=== PATIENT | male | born 1960 | race Caucasian/White ===

== ENCOUNTER → 2018-06-10 | Outpatient (CLI) | payer OTHER ==
[2015-04-12 11:13] VITALS: BP 124/72
[~2018-06-10] MED LIST: ASPI-482 PO; IBUP-1060 PO; OMEG-113 PO; TEST200V3 IM; TRAM50TA PO
--- NOTE | 2018-06-10 13:19 | KCIC ---
MR of the left ankle Indication: Posttraumatic osteoarthritis of the left ankle. Tendon repair 2004 after injury. Infection at the lateral ankle. Comparison: None are available Technique: Standard multiplanar sequences are obtained. FINDINGS: Artifact: No significant image degradation. Lateral: Peroneal tendons: Tendinosis, particularly of the peroneus longus tendon. Mild fluid. Lateral collateral ligaments: * Anterior talofibular ligament: Poorly seen * Calcaneofibular ligament: Poorly seen * Posterior talofibular ligament: Thick/scarred Tibiofibular syndesmosis: Thickening and scarring of the anterior inferior tibiofibular ligament. Medial: Posterior tibial tendon: Mild tendinosis, mild fluid. Flexor digitorum longus and hallucis tendons: Mild fluid, particularly at the intersection at the hindfoot Medial ligaments: Poorly defined Anterior: Anterior tibial tendon: Intact Extensor hallucis longus tendon: Intact Extensor digitorum longus tendon: Intact Posterior: Achilles tendon: Small enthesophytes at the insertion, intact. Plantar aponeurosis: Intact, subjacent enthesophyte. Subtalar joints: Patent Tarsal sinus: Intact Talar Dome: Subchondral irregularity but no evidence of unstable osteochondral lesion. Bones: No evidence of an acute fracture. No aggressive bone destruction. No definite evidence of acute osteomyelitis, although could be difficult to exclude at the tibiotalar joint due to the degenerative changes. Fluid: Small tibiotalar and subtalar joint effusions. Joints: Severe degenerative changes at the tibiotalar joint with subchondral bone flattening and irregularity. Subchondral edema and cysts. There are also degenerative changes, elsewhere about the region although less advanced. Intraosseous cysts at the tarsometatarsal joints are likely degenerative. Poorly seen however. Soft tissues: Generalized soft tissue edema. Impression: 1. Diffuse soft tissue edema or cellulitis. No evidence of a drainable abscess. 2. Severe tibiotalar joint osteoarthritis. 3. Poorly defined medial and lateral ligaments, likely due to tearing 4. Small effusions of uncertain sterility. 5. No definite acute osteomyelitis, although could be difficult to confidently exclude at the tibiotalar joint due to the background degenerative changes. Electronically signed by: Brando Vigil MD (06/10/2018 1:15 PM) [facility]-KCIC2
== END | disposition home or self-care (01) ==
LOC: KCIC MRI 09:00
PROVIDERS: ATTEND Physician Assistant Medical
DX: M19.172 Post-traumatic osteoarthritis, left ankle and foot (principal); M25.472 Effusion, left ankle
CPT/HCPCS: 73721

== ENCOUNTER → 2018-07-18 | Outpatient (CLI) | payer OTHER ==
[2015-04-12 11:13] VITALS: BP 124/72
== END | disposition home or self-care (01) ==
LOC: PMGWOUND 08:46
PROVIDERS: ATTEND Nurse Practitioner Family
DX: L02.416 Cutaneous abscess of left lower limb (principal); M19.172 Post-traumatic osteoarthritis, left ankle and foot; F17.200 Nicotine dependence, unspecified, uncomplicated
CPT/HCPCS: 87071; 87075; 99214; G0463

== ENCOUNTER → 2018-07-25 | Outpatient (CLI) | payer OTHER ==
[2015-04-12 11:13] VITALS: BP 124/72
== END | disposition home or self-care (01) ==
LOC: PMGWOUND 09:28
PROVIDERS: ATTEND Emergency Medicine Undersea and Hyperbaric Medicine
DX: M19.072 Primary osteoarthritis, left ankle and foot (principal); F17.200 Nicotine dependence, unspecified, uncomplicated
CPT/HCPCS: 99213

== ENCOUNTER → 2018-08-24 | Outpatient (CLI) | payer OTHER ==
[2015-04-12 11:13] VITALS: BP 124/72
== END | disposition home or self-care (01) ==
LOC: PMGWOUND 08:54
PROVIDERS: ATTEND Preventive Medicine Undersea and Hyperbaric Medicine
DX: L89.521 Pressure ulcer of left ankle, stage 1 (principal); M19.072 Primary osteoarthritis, left ankle and foot; L97.321 Non-pressure chronic ulcer of left ankle limited to breakdown of skin; F17.200 Nicotine dependence, unspecified, uncomplicated; E66.9 Obesity, unspecified; Z68.34 Body mass index [BMI] 34.0-34.9, adult
CPT/HCPCS: 99213; G0463

== ENCOUNTER → 2019-12-11 | Outpatient (CLI) | payer OTHER ==
[2015-04-12 11:13] VITALS: BP 124/72
[~2019-12-11] MED LIST changes: +BUPR300T3 PO; +PHEN37.599 PO; +SERT50TA PO
[2019-12-11 09:24] LABS: BASO % 1 % (0-3); EOS # 0.2 x10^3/uL (0.0-0.7); EOS % 3 % (0-3); HEMOGLOBIN 14.7 g/dL (13.0-17.5); LYMPH # 2.5 x10^3/uL (1.0-4.8); LYMPH % 39 % (24-48); MEAN CORPUSCULAR HEMOGLOBIN 33 pg (25-35); MEAN CORPUSCULAR HGB CONC 34 g/dL (31-37); MEAN CORPUSCULAR VOLUME 98 fL (79-100); MONO # 0.6 x10^3/uL (0.0-1.1); MONO % 10 % (0-9); NEUT % 47 % (31-73); PLATELET COUNT 220 x10^3/uL (140-400); RED BLOOD COUNT 4.41 x10^6/uL (4.30-5.70); RED CELL DISTRIBUTION WIDTH 13.7 % (11.5-14.5); WHITE BLOOD COUNT 6.3 x10^3/uL (4.0-11.0)
[2019-12-11 09:33] LABS: ALBUMIN 3.6 g/dL (3.4-5.0); C-REACTIVE PROTEIN 7.8 mg/L (0-3.3); CALCIUM 9.1 mg/dL (8.5-10.1); POTASSIUM 4.2 mmol/L (3.5-5.1)
--- NOTE | 2019-12-11 12:04 | RAD ---
EXAM: CHEST PA LATERAL INDICATION: Reason: joint prehab class, hx hypertension-preop eval / Spl. Instructions: / History: . TECHNIQUE: PA and lateral views COMPARISON: None FINDINGS: The heart size is normal. The great vessels appear unremarkable. There is no hilar or mediastinal mass. The lungs are clear. There is no pleural effusion or pneumothorax. There are no significant osseous abnormalities. IMPRESSION: No active cardiopulmonary disease. Electronically signed by: Melchor Kiser MD (12/11/2019 12:02 PM) [id number]
--- NOTE | 2019-12-11 13:03 | EKG ---
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
[2019-12-12 01:08] LABS: HEMOGLOBIN A1C 5.6 % (4.8-5.6)
== END | disposition home or self-care (01) ==
LOC: SURGPAT 11:19
PROVIDERS: ATTEND Orthopaedic Surgery
DX: Z01.818 Encounter for other preprocedural examination (principal); M17.11 Unilateral primary osteoarthritis, right knee; I10 Essential (primary) hypertension
CPT/HCPCS: 36415; 71046; 80048; 82040; 82306; 83036; 85025; 85610; 85730; 86140; 87641; 93005

== ENCOUNTER → 2019-12-20 | Outpatient (CLI) | payer OTHER ==
[2015-04-12 11:13] VITALS: BP 124/72
== END | disposition home or self-care (01) ==
LOC: LAB 13:02
PROVIDERS: ATTEND Orthopaedic Surgery
DX: Z01.818 Encounter for other preprocedural examination (principal); Z11.59 Encounter for screening for other viral diseases
CPT/HCPCS: U0003-CS

== ENCOUNTER 2019-12-26 06:06 | Observation (INO) | payer OTHER ==
[2019-12-26] VITALS (7 sets, daily range): BP systolic 112–150; BP diastolic 74–97
[~2019-12-26] VITALS: Ht 182.9 cm; Wt 123.1 kg
[~2019-12-26 06:06] MED LIST changes: +GABAPENTIN 300 MG CAPSULE. PO PRN; +MELOXICAM 7.5 MG TABLET PO PRN; +MORPHINE SULFATE 5 MG, KETOROLAC 30MG VIAL 30 MG, ROPIVacaine 0.5% PF 60 ML, EPINEPHrin... INT ART ONE; +TRANEXAMIC ACID 1,000 MG in IV NORMAL SALINE 50ML 50 ML INJ ONE
[2019-12-26] MEDS ORDERED: PROPOFOL 10 MG/ML (20ML) VIAL. IV ONE ×2 (06:24→07:47)
[2019-12-26] MEDS ORDERED: ONDANSETRON PF 4 MG/2 ML VIAL. ONE (06:25)
[2019-12-26] MEDS ORDERED: DEXAMETHASONE SOD PHOS 4 MG/ML VIAL ONE (06:25)
[2019-12-26] MEDS ORDERED: LIDOCAINE 2% PF 5 ML VIAL. ONE (06:25)
[2019-12-26] MEDS ORDERED: fentaNYL PF VIAL 100 MCG/2 ML VIAL ONE ×2 (06:25→08:29)
[2019-12-26] MEDS ORDERED: MIDAZOLAM HCL/PF 2 MG/2 ML VIAL. ONE (06:56)
[2019-12-26] MEDS ORDERED: IV RINGERS,LACTATED 1000ML 1,000 ML IV SCH (07:00)
[2019-12-26] MEDS ORDERED: ceFAZolin SODIUM 3 GM in IV DEXTROSE 5% 100ML 100 ML IV PRN (07:00)
[2019-12-26] MEDS ORDERED: ONDANSETRON PF 4 MG/2 ML VIAL. IV PRN (07:00)
[2019-12-26] MEDS ORDERED: PROCHLORPERAZINE 10 MG/2 ML VIAL. IV PRN ×2 (07:00→10:45)
[2019-12-26] MEDS: IV NORMAL SALINE 1000ML BAG 1,000 ML IV SCH (07:04)
[2019-12-26] MEDS ORDERED: 0.9 % SODIUM CHLORIDE 10 ML DISP.SYRIN. IV PRN (07:15)
[2019-12-26] MEDS ORDERED: PROCHLORPERAZINE 5 MG TABLET. PO PRN (07:15)
[2019-12-26] MEDS ORDERED: CALCIUM CARBONATE 500 MG TAB.CHEW PO PRN (07:15)
[2019-12-26] MEDS ORDERED: diphenhydrAMINE 50 MG/ML VIAL IVP PRN (07:15)
[2019-12-26] MEDS ORDERED: DEXTROSE 50% 25 GM / 50ML DISP.SYRIN. IV PRN (07:15)
[2019-12-26] MEDS ORDERED: ACETAMINOPHEN 500 MG TABLET PO ONE ×2 (07:16→07:45)
[2019-12-26] MEDS: GABAPENTIN 100 MG CAPSULE. PO SCH (07:20)
[2019-12-26 07:24] LABS: PROTHROMBIN TIME PATIENT 12.4 SEC (11.7-14.0)
[2019-12-26] MEDS ORDERED: WARF5TAB2 PO (07:43)
[2019-12-26] MEDS ORDERED: MELO15TA6 PO (07:44)
[2019-12-26] MEDS ORDERED: TRANEXAMIC ACID 1,000 MG in IV NORMAL SALINE 50ML 50 ML INJ ONE (08:00)
[2019-12-26] MEDS: FERROUS SULFATE 325 MG TABLET. PO SCH ×2 (08:00→17:13)
[2019-12-26] MEDS ORDERED: PHENYLEPHRINE in 0.9% NACL PF 1 MG/10 ML SYRINGE. IV ONE (08:04)
[2019-12-26] MEDS ORDERED: GLYCOPYRROLATE 1 MG/5 ML VIAL. ONE (08:04)
[2019-12-26] MEDS: SENNOSIDES/DOCUSATE 8.6/50MG TABLET. PO SCH (09:00)
[2019-12-26] MEDS: MULTIVITAMIN with MINERAL TABLET. PO SCH (09:00)
--- NOTE | 2019-12-26 09:15 | PREOP HP ---
DATE OF SERVICE: 12/26/2019 PREOPERATIVE HISTORY AND PHYSICAL CHIEF COMPLAINT: Degenerative joint disease and pain, right knee. HISTORY OF PRESENT ILLNESS: The patient has undergone long-term nonoperative management of right knee DJD and notes that after his last Monovisc injection in the right knee, he only got about 2-3 weeks relief, but continues to be very limited in his activities of daily living, painful particularly on startup and with increased activities and has really failed other nonoperative management and wished to proceed with definitive surgical treatment. PAST MEDICAL HISTORY: Significant for chronic fatigue syndrome, back pain, degenerative joint disease, vitamin D deficiency, hypogonadism, fatigue, spinal stenosis, and sciatica. PAST SURGICAL HISTORY: Carpal tunnel release, shoulder surgery, ankle fusion, and colonoscopy. FAMILY HISTORY: Father was due to lung cancer and mother is alive and relatively healthy. SOCIAL HISTORY: Smokes about a half pack per day for the past 20 years. Occasional alcohol consumption, moderately 2-3 times a week. Denies drug use. , with children and works at the [employer]. MEDICATIONS: List is reviewed and ibuprofen was held. ALLERGIES: He has no known drug allergies, although HE LISTS AN INTOLERANCE TO PERCOCET, which keeps him awake and he says it does not work very well. REVIEW OF SYSTEMS: He denies any recent febrile illness. No chest pain, shortness of breath, other joint pain, radiating pain, focal weakness, numbness, tingling or other constitutional symptoms. PHYSICAL EXAMINATION: VITAL SIGNS: Per his admission sheet. Temp is afebrile. HEENT: Atraumatic, normocephalic. HEART: Regular rate and rhythm. LUNGS: Clear to auscultation bilaterally. ABDOMEN: Benign. EXTREMITIES: Examination of the knees reveal very slight flexion contracture and limitation of his terminal flexion of the right knee and slight varus on the right knee compared to the left medial more so than lateral joint line tenderness. Moderate patellofemoral crepitus without instability. Well-healed incision from a previous total knee arthroplasty on the left knee. Normal examination of bilateral hips and ankles. IMPRESSION: Primary osteoarthritis of the right knee and history of total left knee replacement. TREATMENT PLAN: We had previously gone over risks, benefits, and postoperative course of the total knee arthroplasty including the possibility of continued pain with the possibility of infection, premature loosening, instability, medical or other anesthetic complications among others. He wishes to proceed with surgical evaluation and treatment, which will occur today as he is given informed consent. CARMEN TYLER MD DR: TERRY/wendy JOB#: [id number] / [id number]
[2019-12-26] MEDS ORDERED: VANCOMYCIN 1 GM VIAL. ONE (09:21)
[2019-12-26] MEDS ORDERED: SEVOFLURANE > 120 MINUTES. IH ONE (09:38)
[2019-12-26] MEDS: MORPHINE SULFATE 2 MG/ML VIAL. IVP PRN ×3 (10:31→22:52)
[2019-12-26] MEDS: HYDROmorphone 2 MG/ML VIAL IV PRN ×4 (10:43→10:53)
[2019-12-26] MEDS ORDERED: fentaNYL PF VIAL 100 MCG/2 ML VIAL IV PRN (10:45)
[2019-12-26] MEDS ORDERED: MORPHINE SULFATE 2 MG/ML VIAL. IV PRN (10:45)
[2019-12-26] MEDS: fentaNYL PF VIAL 100 MCG/2 ML VIAL IV PRN ×2 (10:58→11:10)
--- NOTE | 2019-12-26 11:20 | NUR ---
Arrived to unit by bed from PACU. Drowsy but awakens easily. Right leg elevated on pillow and ice pack. Right knee dressing is d/i with BRET, IAC and Hemovac drain intact. Pt able to wiggle toes easily, warm touch and pedal pulses + bilaterally. RHETT and SCD on left leg and CLARISSA on right foot. IVF's intact and infusing. Oriented to room and controls. Side rails up x's 2 with call light in reach. Family at bedside. Cont. monitor.
--- NOTE | 2019-12-26 11:28 | RAD ---
PROCEDURE: KNEE RIGHT 2V STUDY DATE: 12/26/2019 CLINICAL INDICATION / HISTORY: Reason: POST OP / Spl. Instructions: / History: . TECHNIQUE: AP and crosstable lateral views of the right knee were obtained COMPARISON: 07/26/2019 right knee x-rays FINDINGS: Interval right total knee arthroplasty in anatomic alignment. Fluid and gas in the joint space is present along with a surgical drain. No fracture or aggressive osseous lesions seen. IMPRESSION: Expected postoperative changes following right total knee arthroplasty. Electronically signed by: Melchor Kiser MD (12/26/2019 11:25 AM) [id number]
--- NOTE | 2019-12-26 11:50 | PDOC4 ---
Operative Note Operative Note Date of surgery: 12/26/2019 Preoperative diagnosis: Degenerative joint disease right knee Postoperative diagnosis: Same Operative procedure: Right total knee arthroplasty Surgeon: [employer] Internship: Missy howe Anesthesia: General Estimated blood loss: 50 cc Complications: None Operative indications: Please see my previous clinic note and dictated history and physical of today for detailed operative indications Operative text: Patient was identified procedure verified patient placed in the supine position on the operating table. After adequate amounts of general anesthesia were administered the right lower extremity was prepped and draped in the standard sterile fashion with a thigh tourniquet. After timeout was performed patient procedure identified and verified the right lower extremity was exsanguinated by elevation and tourniquet inflated to 350 mils of mercury and a midline incision was made with a medial parapatellar approach patella was everted fat pad was excised he was noted to have severe wear in the medial compartment with varus deformity and particularly posterior tibial wear severe in nature. He also had severe synovitis and a synovectomy was performed with electrocautery. The intramedullary femoral guide was drilled and placed for a standard distal femur cut as he had only a minimal flexion contracture. Distal femur was sized at a size 8 and translated 2 mm superiorly to avoid any notching AP chamfer cuts were made cruciate ligaments were excised as they were compromised by the synovitis and tibial alignment guide was aligned to the se cond toe with care particularly as he had a previous ankle fusion. With retractors protecting the collateral ligaments and posterior structures tibial cut was made just at the level of the severe posterior medial wear on the tibia and tibia sized at a size 8. Flexion extension gaps were assessed and were excellent medial lateral stability balance by a slight medial release and re moval of some osteophytes. Tibia was drilled and broached with a size 8 component a size 8 posterior stabilized femoral trial was placed after excising the bone and the box area. A 26 mm by concave patella was reamed and noted excellent tracking. With trial components were removed thorough irrigation carried out with normal saline solution and bleeding points were controlled by electrocautery. The following [employer] Nephew components were cemented in place using polymethyl methacrylate cement: A size 8 journey 2 tibial component nonporous. A size 8 Oxinium posterior stabilized femoral component. A 26 mm bi concave patella component, and a 11 mm articular insert provided excellent balance with full range of motion. After cement was dry and excess cement removed a size 11 mm journey to articular insert was locked into place, Hemovac drain and articular pain catheter were placed pain catheter mixture was injected throughout the joint capsule, 1 g vancomycin was sprinkled throughout the joint capsule and closure accomplished with #2 Ethibond suture in an interrupted fashion reinforced with #1 PDS strata fix suture. Subcutaneous closure with buried Vicryl suture subcuticular 3-0 strata fix Monocryl followed by a dede dressing with Acticoat. Toes were noted to be warm pink following deflation of the tourniquet and patient was returned to recovery room in stable condition having tolerated procedure well. Missy Rust was present for the procedure and assisted in the positioning prepping draping retraction closure and dressings CARMEN TYLER MD Dec 26, 2019 11:50
[2019-12-26] MEDS: ONDANSETRON PF 4 MG/2 ML VIAL. IVP SCH ×2 (12:00→18:00)
[2019-12-26] MEDS: ONDANSETRON ODT 4 MG TAB.RAPDIS. PO SCH ×2 (12:00→18:00)
[2019-12-26] MEDS: fentaNYL PF VIAL 100 MCG/2 ML VIAL IVP PRN (12:01)
[2019-12-26] MEDS: SERTRALINE 50 MG TABLET. PO SCH (13:28)
[2019-12-26] MEDS: buPROPion XL 150 MG TAB.ER.24H. PO SCH (13:28)
[2019-12-26] MEDS ORDERED: WARFARIN 7.5 MG TABLET. PO ONE (16:00)
[2019-12-26] MEDS: KETOROLAC 30MG VIAL 30 MG, BUPIVACAINE MPF 0.25% 20 ML, EPINEPHrine 0.5 MG in TOTAL VOL... INT ART SCH (17:39)
--- NOTE | 2019-12-26 18:42 | NUR ---
Unable to infuse IAC med.
--- NOTE | 2019-12-26 19:35 | NUR ---
States he has chronic numbness in his feet, history of fused ankles bilaterally. IV site change due to kink in catheter. 20g placed left hand. Morphine given IVP. Ice pack placed. Rating pain 5/10.
[2019-12-26] MEDS: ZOLPIDEM 5 MG TABLET. PO PRN (22:57)
[2019-12-27] MEDS: fentaNYL PF VIAL 100 MCG/2 ML VIAL IVP PRN ×4 (00:23→13:13)
[2019-12-27] MEDS: ZOLPIDEM 5 MG TABLET. PO PRN (00:34)
--- NOTE | 2019-12-27 01:05 | NUR ---
Patient crying, c/o pain behind knee but now "it's in my thigh and knee." Has rec'd Morphine, Fentanyl and Ambien. Still rating 10/10. Patient states he takes Ultram po at HS and that works fine. Attempts at diversion have been unsuccessful.
[2019-12-27] MEDS ORDERED: traMADol 50 MG TABLET PO ONE (01:30)
[2019-12-27 03:21] VITALS: BP 122/78
--- NOTE | 2019-12-27 03:23 | NUR ---
"I slept for about 45 minutes." C/o thigh pain now. Rubbing quads w/ empty water pitcher. Morphine given IVP, new IV site leaking.
[2019-12-27 05:07] LABS: HEMATOCRIT 37.2 % (39.0-53.0); HEMOGLOBIN 12.8 g/dL (13.0-17.5)
[2019-12-27 05:17] LABS: PROTHROMBIN TIME PATIENT 13.9 SEC (11.7-14.0)
[2019-12-27] MEDS: GABAPENTIN 100 MG CAPSULE. PO SCH ×2 (05:41→14:29)
[2019-12-27] MEDS: traMADol 50 MG TABLET PO SCH ×3 (05:42→17:29)
[2019-12-27] MEDS: ONDANSETRON ODT 4 MG TAB.RAPDIS. PO SCH ×2 (05:52)
[2019-12-27] MEDS: KETOROLAC 30MG VIAL 30 MG, BUPIVACAINE MPF 0.25% 20 ML, EPINEPHrine 0.5 MG in TOTAL VOL... INT ART SCH (05:52)
[2019-12-27] MEDS: ONDANSETRON PF 4 MG/2 ML VIAL. IVP SCH ×2 (05:52)
[2019-12-27] MEDS ORDERED: MAGNESIUM HYDROXIDE 2,400 MG/30 ML ORAL.SUSP. PO PRN (06:00)
--- NOTE | 2019-12-27 06:10 | NUR ---
New order for Flexeril TID rec'd from Dr. Abreu. Juliano wrap partially unwrapped at patient request. Small amount bloody drainage to posterior soft roll. Thigh is not swollen, pedal pulse 2+, able to wiggle toes. Fresh ice applied.
[2019-12-27] MEDS: CYCLOBENZAPRINE 10 MG TABLET. PO PRN ×2 (06:19→14:29)
[2019-12-27 07:00] VITALS: BP 130/81
--- NOTE | 2019-12-27 07:02 | NUR ---
Hemovac has 2 green barron size blood clots present. "Those IV pain meds don't do anything for me." Believes the Flexeril "may be helping."
[2019-12-27] MEDS: IV NORMAL SALINE 1000ML BAG 1,000 ML IV SCH (07:04)
[2019-12-27] MEDS: MELOXICAM 7.5 MG TABLET PO SCH (07:43)
[2019-12-27] MEDS: FERROUS SULFATE 325 MG TABLET. PO SCH ×2 (07:43→17:28)
[2019-12-27] MEDS: SENNOSIDES/DOCUSATE 8.6/50MG TABLET. PO SCH (07:43)
[2019-12-27] MEDS: MORPHINE SULFATE 2 MG/ML VIAL. IVP PRN ×2 (07:43→11:14)
[2019-12-27] MEDS: ACETAMINOPHEN 500 MG TABLET PO SCH ×3 (07:43→20:51)
[2019-12-27] MEDS: MULTIVITAMIN with MINERAL TABLET. PO SCH (07:44)
[2019-12-27] MEDS: buPROPion XL 150 MG TAB.ER.24H. PO SCH (07:44)
[2019-12-27] MEDS: SERTRALINE 50 MG TABLET. PO SCH (07:44)
[2019-12-27] MEDS: ASPIRIN ENTERIC COATED 81 MG TABLET.DR. PO SCH (07:44)
--- NOTE | 2019-12-27 08:48 | NUR ---
Umesh has been awake all night. He is painful and rating his pain a "9". Medicated with morphine. am care completed. He has good sensation,pulses and motion in lower extremities. states pain is still a "9" after morphine
--- NOTE | 2019-12-27 10:55 | NUR ---
pain was down to 7 prior to therapy. unable to tolerate therapy. restless and unable to sit for long periods of time. returned to room within 30 min
[2019-12-27 11:14] VITALS: BP 123/86
[2019-12-27] MEDS ORDERED: ONDANSETRON ODT 4 MG TAB.RAPDIS. PO PRN (12:00)
[2019-12-27] MEDS ORDERED: ONDANSETRON PF 4 MG/2 ML VIAL. IVP PRN (12:00)
[2019-12-27] MEDS: HYDROcodone/APAP 10/325 1 TAB TABLET PO PRN (14:29)
--- NOTE | 2019-12-27 14:38 | NUR ---
gave fentanyl prior to going to therapy. was able to tolerate therapy for the whole session this time. Hemovac and iac removed (blue tip ) intact. Addendum: 12/27/19 at 1449 by MAYKEL RESENDIZ RN BRET dressing has a small/moderate amount drainage on the knee cap area.
--- NOTE | 2019-12-27 15:05 | NUR ---
Pharmacy Warfarin Dosing Note S:Pharmacy consulted to assist with anticoagulation therapy started 12/26/19 with target INR: O:RUDOLPH CLINE is a 59 year old M with TKA LABS: Last INR: 1.1 Last HGB: 12.8 Last HCT: 37.2 Last PLT: Last dose of 7.5 mg given on 12/26/19 at 1700 Previous Regimen: Vitamin K given: N Drug Interaction Changes: Ongoing Drug Interactions: ASA/MELOXICAM A:INR of 1.1 is below desired range. Target range for this patient is: P: Warfarin dose: 6 mg Today at 1600 Bridge Therapy: None Next INR due IN AM Pharmacy anticoagulation service will continue to follow. SANGITA CAMPOS [facility], 12/27/19 1450
[2019-12-27] MEDS ORDERED: BISACODYL 10 MG SUPP.RECT. PR PRN (16:00)
[2019-12-27] MEDS ORDERED: WARFARIN 3 MG TABLET. PO ONE (16:00)
[2019-12-27 18:14] VITALS: BP 131/51
--- NOTE | 2019-12-27 20:42 | PDOC ---
PROGRESS NOTES Subjective Subjective Problems overnight: Hans indicates significant difficulty sleeping last night, he does not tolerate oxycodone so was given morphine and fentanyl alternating and nurse reported that the intra-articular catheter was not infusing well Objective Vital Signs Vital Signs Date Time Temp Pulse Resp B/P (MAP) Pulse Ox O2 Delivery O2 Flow Rate FiO2 12/27/19 18:14 100.3 101 16 131/51 (77) 95 Room Air 100.3 12/26/19 10:58 10.0 Physical Exam Noé dressing intact Hemovac functional intra-articular catheter without obvious drainage but difficulty infusing, some blood clots in Hemovac Otherwise good early range of motion distal neurovascular status intact Labs Laboratory Tests Test 12/26/19 06:55 12/27/19 04:43 Prothrombin Time 12.4 SEC (11.7-14.0) 13.9 SEC (11.7-14.0) Prothromb Time International Ratio 1.0 (0.8-1.1) 1.1 (0.8-1.1) Activated Partial Thromboplast Time 29 SEC (24-38) Hemoglobin 12.8 g/dL (13.0-17.5) Hematocrit 37.2 % (39.0-53.0) Mean Corpuscular Hemoglobin Concent 35 g/dL (31-37) Laboratory Tests Test 12/27/19 04:43 Hemoglobin 12.8 g/dL (13.0-17.5) Hematocrit 37.2 % (39.0-53.0) Mean Corpuscular Hemoglobin Concent 35 g/dL (31-37) Prothrombin Time 13.9 SEC (11.7-14.0) Prothromb Time International Ratio 1.1 (0.8-1.1) Imaging Well-positioned total knee arthroplasty components on postoperative x-rays Assessment Assessment POD#1 right total knee arthroplasty Plan Plan of Care Switching to Lortab 10 mg orally due to a intolerance of oxycodone Continue mobilize with physical therapy Coumadin anticoagulation Justicifation of Admission Dx: Justifications for Admission: Justification of Admission Dx: Yes (Poor pain control and insomnia last night) CARMEN TYLER MD Dec 27, 2019 20:42
[2019-12-27 23:00] VITALS: BP 142/77
[2019-12-28] MEDS: traMADol 50 MG TABLET PO SCH ×4 (00:09→17:18)
[2019-12-28] MEDS: ACETAMINOPHEN 500 MG TABLET PO SCH ×4 (02:45→21:00)
[2019-12-28 04:40] LABS: HEMATOCRIT 33.7 % (39.0-53.0); HEMOGLOBIN 11.7 g/dL (13.0-17.5)
[2019-12-28 04:46] LABS: PROTHROMBIN TIME PATIENT 15.7 SEC (11.7-14.0)
[2019-12-28 06:00] VITALS: BP 134/76
[2019-12-28] MEDS: GABAPENTIN 100 MG CAPSULE. PO SCH ×3 (06:00→21:17)
--- NOTE | 2019-12-28 08:00 | NUR ---
states he is feeling better today. he is rating his pain 4 while resting.
[2019-12-28] MEDS: buPROPion XL 150 MG TAB.ER.24H. PO SCH (08:26)
[2019-12-28] MEDS: SENNOSIDES/DOCUSATE 8.6/50MG TABLET. PO SCH (08:26)
[2019-12-28] MEDS: SERTRALINE 50 MG TABLET. PO SCH (08:27)
[2019-12-28] MEDS: ASPIRIN ENTERIC COATED 81 MG TABLET.DR. PO SCH (08:27)
[2019-12-28] MEDS: FERROUS SULFATE 325 MG TABLET. PO SCH ×2 (08:27→17:00)
[2019-12-28] MEDS: MULTIVITAMIN with MINERAL TABLET. PO SCH (08:27)
[2019-12-28] MEDS: MELOXICAM 7.5 MG TABLET PO SCH (08:28)
[2019-12-28] MEDS: HYDROcodone/APAP 10/325 1 TAB TABLET PO PRN ×4 (08:33→21:16)
[2019-12-28] MEDS ORDERED: POLYETHYLENE GLYCOL 3350 17 GM PACKET. PO PRN (09:00)
--- NOTE | 2019-12-28 09:42 | PDOC ---
PROGRESS NOTES Subjective Subjective Problems overnight: Very constipated, adjusting medications to achieve adequate pain control as he had been requiring ongoing IV pain medications and has not been up and around mobilizing and transferred with the new regimen Objective Vital Signs Vital Signs Date Time Temp Pulse Resp B/P (MAP) Pulse Ox O2 Delivery O2 Flow Rate FiO2 12/28/19 08:33 20 12/28/19 08:30 Room Air 12/28/19 07:00 97 12/28/19 06:00 98.5 96 134/76 (95) 98.5 12/26/19 10:58 10.0 Physical Exam Right knee swollen as expected spiked temp to 100.3 last evening afebrile since using incentive spirometry some bloody drainage at drain site which was otherwise adequately removed along with the pain catheter and some slight medial midline bloody drainage on dede dressing otherwise distal neurovascularly intact and has good motion and ligament tracking patellofemoral stability Labs Laboratory Tests Test 12/27/19 04:43 12/28/19 03:00 Hemoglobin 12.8 g/dL (13.0-17.5) 11.7 g/dL (13.0-17.5) Hematocrit 37.2 % (39.0-53.0) 33.7 % (39.0-53.0) Mean Corpuscular Hemoglobin Concent 35 g/dL (31-37) 35 g/dL (31-37) Prothrombin Time 13.9 SEC (11.7-14.0) 15.7 SEC (11.7-14.0) Prothromb Time International Ratio 1.1 (0.8-1.1) 1.3 (0.8-1.1) Laboratory Tests Test 12/28/19 03:00 Hemoglobin 11.7 g/dL (13.0-17.5) Hematocrit 33.7 % (39.0-53.0) Mean Corpuscular Hemoglobin Concent 35 g/dL (31-37) Prothrombin Time 15.7 SEC (11.7-14.0) Prothromb Time International Ratio 1.3 (0.8-1.1) Assessment Assessment POD#2 total knee arthroplasty Plan Plan of Care Inadequate pain control, continuing to adjust medications, continue incentive spirometry and monitor temp due to spike to 100.3 last night Treating constipation, continue mobilize with physical therapy when pain adequately managed Plan outpatient physical therapy in [place] on discharge Justicifation of Admission Dx: Justifications for Admission: Justification of Admission Dx: Yes (Spiked a fever last night continue incentive spirometry and adjusting pain medications from IV for adequate pain control and treating constipation) CARMEN TYLER MD Dec 28, 2019 09:42
--- NOTE | 2019-12-28 11:00 | NUR ---
returns from therapy. his pain is an "8" medicated with morphine iv
[2019-12-28] MEDS: MORPHINE SULFATE 2 MG/ML VIAL. IVP PRN (11:07)
[2019-12-28] MEDS: CYCLOBENZAPRINE 10 MG TABLET. PO PRN ×2 (11:56→21:16)
--- NOTE | 2019-12-28 13:16 | NUR ---
Pharmacy Warfarin Dosing Note S: Pharmacy consulted to assist with anticoagulation therapy started 12/26/19 O: RUDOLPH CLINE is a 59 year old M with TKA LABS: Last INR: 1.3 Last HGB: 11.7 Last HCT: 33.7 Last PLT: Last dose of 6 mg given on 12/25/19 at 1733 Vitamin K given: N Ongoing Drug Interactions: ASA/MELOXICAM/SERTRALINE A:INR of 1.3 is below desired range. Target range for this patient is: 1.6 - 2.5 P: Warfarin dose: 5 mg today at 1600 Bridge Therapy: None Next INR due TOMORROW Pharmacy anticoagulation service will continue to follow. Elizabeth Araya RPH, 12/28/19 8079
[2019-12-28 14:47] VITALS: BP 133/79
--- NOTE | 2019-12-28 15:08 | PATHOLOGY ---
[facility] Accession Number: [id number] . 01 Material submitted: . knee - RIGHT KNEE AND TISSUE. Modifiers: right . 01 Clinical history: . Primary OA of R knee . 02 Diagnosis: Segments of bone and soft tissue, right total knee arthroplasty: - Advanced degenerative arthritis. (JPM:delores; 12/28/2019) MBR 12/28/2019 1307 Local . 02 Electronically signed: . Luis Fernando Luis MD, Pathologist NPI- [id number] . 01 Gross description: . The specimen is received in formalin, labeled "Hans Barillas, right knee and tissue" and consists of multiple segments of bone including the tibial plateau with a small amount of attached yellow lobulated tissue measuring 15.3 x 14.5 x 2.0 cm. The meniscus is present. The articular surfaces display eburnation. Coremaker Machine sections are submitted in A1-A2 with A2 following decalcification. (SDY; 12/26/2019) SYU/SYU 12/26/2019 1740 Local . 02 Pathologist provided ICD-10: M17.11 . 02 CPT . 454397, [id number] Specimen Comment: A courtesy copy of this report has been sent to [phone], [phone] Specimen Comment: [id number] Specimen Comment: Report sent to / DR NEVAREZ Performed at: 01 [facility] [address], [place] [id number] MD Krish Ratliff MD Phone: [phone] Performed at: 02 [facility] [address], [place] [id number] MD Luis Fernando Luis MD Phone: [phone]
[2019-12-28] MEDS ORDERED: WARFARIN 5 MG TABLET. PO ONE (16:00)
[2019-12-28 18:00] VITALS: BP 144/77
--- NOTE | 2019-12-28 18:07 | NUR ---
Umesh is visiting with his daughter. pain is better controlled this evening. he is rating his pain from a 3-5. continues to be on tramadol and Lortab 10 Hemovac site dressing changed.; cleansed with chlor prep then folded 4x4 applied. continues to use ice prn and elevation. right leg remains swollen 2-3+
--- NOTE | 2019-12-28 18:10 | NUR ---
Holli is doing better on Lortab compared to oxy. she has only needed Zofran x1 this shift and pain is controlled with this regimen.
[2019-12-29] MEDS: traMADol 50 MG TABLET PO SCH ×3 (00:03→11:46)
[2019-12-29] MEDS: ACETAMINOPHEN 500 MG TABLET PO SCH ×3 (03:00→14:22)
[2019-12-29 05:08] LABS: HEMATOCRIT 29.8 % (39.0-53.0); HEMOGLOBIN 10.2 g/dL (13.0-17.5)
[2019-12-29] MEDS: GABAPENTIN 100 MG CAPSULE. PO SCH ×2 (06:04→14:21)
[2019-12-29 06:18] VITALS: BP 117/40
[2019-12-29] MEDS: ASPIRIN ENTERIC COATED 81 MG TABLET.DR. PO SCH (07:45)
[2019-12-29] MEDS: SERTRALINE 50 MG TABLET. PO SCH (07:46)
[2019-12-29] MEDS: MELOXICAM 7.5 MG TABLET PO SCH (07:46)
[2019-12-29] MEDS: buPROPion XL 150 MG TAB.ER.24H. PO SCH (07:46)
[2019-12-29] MEDS: SENNOSIDES/DOCUSATE 8.6/50MG TABLET. PO SCH (07:46)
[2019-12-29] MEDS: FERROUS SULFATE 325 MG TABLET. PO SCH (07:47)
[2019-12-29] MEDS: MULTIVITAMIN with MINERAL TABLET. PO SCH (07:47)
[2019-12-29 08:13] LABS: PROTHROMBIN TIME PATIENT 15.8 SEC (11.7-14.0)
--- NOTE | 2019-12-29 09:51 | NUR ---
Patient refused his lortab this morning stating his pain is being controlled well with the tramadol, mobic, and tylenol at this time. During OT this morning his pain was around a 2 and he still refused to take the lortab but told me he will notify me when he needs it. Education given on wanting to stay ahead of the pain and patient stated understanding. Dressing to right lateral leg changed where old hemovac site was. Will continue to monitor.
--- NOTE | 2019-12-29 11:27 | NUR ---
Pharmacy Warfarin Dosing Note S:Pharmacy consulted to assist with anticoagulation therapy started 12/26/19 with target INR: 1.6 - 2.5 O:RUDOLPH CLINE is a 59 year old M with TKA LABS: Last INR: 1.3 Last HGB: 10.2 Last HCT: 29.8 Last PLT: - Last dose of 5 mg given on 12/28/19 at 1448 Previous Regimen: Vitamin K given: N Drug Interaction Changes: Ongoing Drug Interactions: ASA/MELOXICAM/SERTRALINE A:INR of 1.3 is below desired range. Target range for this patient is: 1.6 - 2.5 P: Warfarin dose: 7.5 mg Prior to Discharge then 5mg daily Bridge Therapy: None Next INR due Wednesday to be done at outpatient lab Pharmacy anticoagulation service will continue to follow. Elizabeth Araya RPH, 12/29/19 1127
[2019-12-29] MEDS ORDERED: WARF-31 PO (11:52)
[2019-12-29] MEDS ORDERED: WARFARIN 7.5 MG TABLET. PO ONE (14:00)
[2019-12-29] MEDS: HYDROcodone/APAP 10/325 1 TAB TABLET PO PRN (14:21)
--- NOTE | 2019-12-29 14:22 | NUR ---
BRET dressing changed to RTK due to having a small amount of old blood noted. Incision with no signs of infection or dehiscence noted. No active bleeding noted upon dressing change. New BRET placed and green light flashing.
[2019-12-29] MEDS ORDERED: HYDR-3135 PO (14:25)
--- NOTE | 2019-12-29 14:26 | DISCH ---
DISCHARGE INSTRUCTIONS Condition on Discharge Condition on Discharge: Stable Activity After Discharge Activity Instructions for Disc: Activity as tolerated, Avoid exertion, Prog ressive ambulation Bathing Instructions: Shower-keep dressing dry, No Tub Bath until see Exercise Instruction after Dis: Exercise per therapy Driving Instructions after Dis: Do not drive Weight Bearing Status after Di: Full weight bearing, As tolerated Wound Incision Care Wound/Incision Care: Ice to area for comfort, Do not change dressing Other wound/incision instructi: DO NOT change BRET dressing. It is to remain in place till your appointment Community/Resources/Services Services at Discharge: Outpatient Therapy Contacting the after DC Call your doctor for: Concerns you may have Follow-Up Follow Up With: Dr Huber on January 07 at 08:45. [phone] Treatment/Equipment after DC Adaptive Equipment Issued: None Warfarin Follow-Up Warfarin Follow UP: Have your PT/INR drawn every Wednesday for four weeks. CARMEN HUBER MD Dec 29, 2019 14:26
--- NOTE | 2019-12-29 15:03 | DS ---
DATE OF DISCHARGE: 12/29/2019 PRINCIPAL DIAGNOSIS: Degenerative joint disease of right knee. PROCEDURE: Right total knee arthroplasty. DISPOSITION MEDICATIONS: Include [place] 10/325 one p.o. every 4 hours p.r.n. pain; Coumadin as directed by [facility], currently 5 mg daily, modify depending on testing; resume preoperative medications as directed. ACTIVITY: Weightbearing as tolerated, standard total knee protocol; maintain BRET dressing; call if saturated, fever, chills, uncontrolled pain, or other complications. DISCHARGE INSTRUCTIONS: Follow up with Dr. Huber in 2 weeks. BRIEF DESCRIPTION OF HOSPITAL COURSE: The patient underwent uncomplicated total knee arthroplasty; postoperatively was noted to have significant difficulties with pain control and constipation requiring intravenous pain medications initially, particularly since the intra-articular catheter was not infusing well, although was removed adequately along with the drain. He had some continued drainage at the drain site. BRET dressing was changed on postoperative day #3 and at that point, he was controlled on oral pain medications, stable medically, and was discharged home in stable condition. CARMEN HUBER MD DR: TERRY/wendy JOB#: [id number] / [id number]
[2019-12-29] MEDS ORDERED: CYCL10TA2 PO (15:10)
--- NOTE | 2019-12-29 15:50 | NUR ---
Patient left around 1550 with his . Discharge education with the patient and his by this nurse, the doctor, and therapy. Coumadin given by the pharmacy and instructions gone over. BRET dressing changed and discharge instructions addressed with no concerns noted. Pain medication prior to dismissal per request. Script given for norco and flexeril. No concerns noted at discharge.
[2019-12-30] MEDS ORDERED: WARFARIN 5 MG TABLET. PO SCH (16:00)
== END 2019-12-29 15:50 | disposition home or self-care (01) ==
LOC: SURG 06:06 → 4 SOUTHEST 07:04
PROVIDERS: ADMIT Orthopaedic Surgery; ATTEND Orthopaedic Surgery
DX: M17.11 Unilateral primary osteoarthritis, right knee (principal); R53.82 Chronic fatigue, unspecified; K59.00 Constipation, unspecified; F17.210 Nicotine dependence, cigarettes, uncomplicated; Z90.49 Acquired absence of other specified parts of digestive tract
CPT/HCPCS: 27447; 36415; 73560; 85014; 85018; 85610; 85730; 86850; 86900; 86901; 88305; 88311; 96365; 96366; 96375; 96376; 97110; 97150; 97162; 97165; 97530; 97535; 99406; A7015; C1713; G0378; G0379; J0171; J0690; J1100; J1170; J1885; J2250; J2270; J2370; J2405; J2704; J2795; J3010; J3370; J3490; J7030; C1769